=== PATIENT | female | born 1955 | race Two or more races ===

== ENCOUNTER 2022-10-29 17:02 | Emergency (ER) | payer OTHER ==
[2022-10-29 17:15] VITALS: BP 141/75; PULSE 96; RESP 18; TEMP 99.4; BMI 29.0
[2022-10-29 18:24] LABS: BASO % 1.1 % (0-2.0); EOS % 1.9 % (0-4.5); HEMATOCRIT 39.6 % (32.4-45.2); HEMOGLOBIN 12.7 GM/dL (10.7-15.3); LYMPH % 29.3 % (8-40); MCH 27.1 pg (25.7-33.7); MCHC 32.2 g/dl (32.0-36.0); MEAN CELL VOLUME 84.1 fl (80-96); MEAN PLT VOLUME 7.8 fl (7.5-11.1); MONO % 9.4 % (3.8-10.2); NEUT % 58.3 % (42.8-82.8); PLATELET COUNT 469 10^3/uL (134-434); RDW 16.3 % (11.6-15.6); WHITE BLOOD COUNT 8.1 K/mm3 (4.0-10.0)
[2022-10-29 18:48] LABS: ALBUMIN 3.4 g/dl (3.4-5.0); BLOOD UREA NITROGEN 14.2 mg/dL (7-18); CALCIUM 7.6 mg/dL (8.5-10.1)
[2022-10-29 18:53] LABS: BILIRUBIN,TOTAL 0.2 mg/dL (0.2-1); TOT PROT 8.4 g/dl (6.4-8.2)
== END 2022-10-29 21:39 | disposition home or self-care (01) ==
LOC: JERFT 17:02
DX: M54.2 Cervicalgia (principal)
CPT/HCPCS: 36415; 70491-TC; 80053; 85025; 99285-25; Q9967

== ENCOUNTER 2025-03-20 08:49 | Emergency (ER) | payer OTHER ==
[2025-03-20 09:11] VITALS: PULSE 80; RESP 16; TEMP 98.4; BMI 29.5
[2025-03-20] MEDS ORDERED: CEPHALEXIN MONOHYDRATE 500 MG CAPSULE (UD) ONE (09:45)
[2025-03-20] MEDS: CEPHALEXIN MONOHYDRATE 500 MG CAPSULE (UD) PO ONE (09:52)
[2025-03-20 11:01] VITALS: BP 160/78
== END 2025-03-20 11:01 | disposition home or self-care (01) ==
LOC: JER 08:49
DX: T81.49XA Infection following a procedure, other surgical site, initial encounter (principal); G89.18 Other acute postprocedural pain
CPT/HCPCS: 99283-25